=== PATIENT | male | born 1975 | race Caucasian/White ===

== ENCOUNTER 2018-10-19 13:31 | Emergency (ER) | payer MEDICARE, OTHER ==
[2018-10-19] MEDS: morphine 4 MG/ML VIAL IV (14:21)
[2018-10-19] MEDS: SOD CHLORIDE 0.9% 1,000 ML IV (14:21)
[2018-10-19] MEDS: ONDANSETRON 4 MG INJ IV (14:21)
[2018-10-19 15:02] LABS: LIPASE 73 U/L (23-300)
[2018-10-19] MEDS: HYDROCODONE/APAP (5/325) TAB PO (18:00)
== END 2018-10-19 18:27 | disposition home or self-care (01) ==
LOC: E/R 13:31
DX: N20.0 Calculus of kidney (principal); I10 Essential (primary) hypertension; F17.210 Nicotine dependence, cigarettes, uncomplicated; E11.9 Type 2 diabetes mellitus without complications; Z79.4 Long term (current) use of insulin
CPT/HCPCS: 36415; 71045; 74176; 83690; 93005; 96374; 96375; 99285-25